=== PATIENT | female | born 1970 | race Caucasian/White ===

== ENCOUNTER 2023-03-30 11:42 | Emergency (ER) | payer OTHER ==
[2023-03-30 12:02] VITALS: BP 101/65; PULSE 78; RESP 18; TEMP 98.8; BMI 26.5
[2023-03-30] MEDS ORDERED: MECLIZINE HCL 25 MG TABLET (FP) PO ONE (12:44)
[2023-03-30] MEDS ORDERED: ACETAMINOPHEN 325 MG TABLET (FP) PO ONE (12:44)
[2023-03-30] MEDS ORDERED: ACETAMINOPHEN 325 MG TABLET (FP) ONE (12:57)
[2023-03-30] MEDS ORDERED: MECLIZINE HCL 25 MG TABLET (FP) ONE (12:57)
== END 2023-03-30 14:41 | disposition home or self-care (01) ==
LOC: FER 11:42
DX: S09.90XA Unspecified injury of head, initial encounter (principal); R42 Dizziness and giddiness; W22.8XXA Striking against or struck by other objects, initial encounter
CPT/HCPCS: 70450-TC; 93005; 99284-25